=== PATIENT | male | born 1975 | race African-American/Black ===

== ENCOUNTER 2018-07-10 10:42 | Inpatient (IN) | payer OTHER ==
[2018-07-10 11:27] VITALS: BMI 19.3
--- NOTE | 2018-07-10 12:11 | HP ---
CIWA Score Nausea/Vomitin Muscle Tremors: 2 Anxiety: 2 Agitation: 2 Paroxysmal Sweats: 1-Minimal Palms Moist Orientation: 0-Oriented Tacttile Disturbances: 1-Very Mild Itch/Numbness Auditory Disturbances: 1-Very Mild Visual Disturbances: 0-None Headache: 2-Mild CIWA-Ar Total Score: 13 - Admission Criteria [facility] Guidelines: Admission for Medically Managed Detox: Requires at least one of the followin. CIWA greater than 12 2. Seizures within the past 24 hours 3. Delirium tremens within the past 24 hours 4. Hallucinations within the past 24 hours 5. Acute intervention needed for co occurring medical disorder 6. Acute intervention needed for co occurring psychiatric disorder 7. Severe withdrawal that cannot be handled at a lower level of care (continued vomiting, continued diarrhea, abnormal vital signs) requiring intravenous medication and/or fluids 8. Admission ROS S - HPI Chief Complaint: i need help to stop drinking alcohol,marijuana Allergies/Adverse Reactions: Allergies Allergy/AdvReac Type Severity Reaction Status Date / Time No Known Allergies Allergy Verified 07/10/18 15:12 History of Present Illness: this 43 years old with alcohol dependence seeking detox,withdrawal symptom, last detox [place] 06/10/18 to 07/09/18 not completed bipolar disorder with depression,on med no suicidal,no homicidal nicotine dependence 10 cigarette,did not want nicotine replacement weight loss no significant period of sobriety Exam Limitations: No Limitations - Ebola screening Have you traveled outside of the country in the last 21 days: No Have you had contact with anyone from an Ebola affected area: No Have you been sick,other than usual withdrawal symptoms: No - Review of Systems Constitutional: Loss of Appetite, Malaise, Night Sweats, Changes in sleep, Unintentional Wgt. Loss EENT: reports: Tearing, Nose Congestion Respiratory: reports: No Symptoms reported Cardiac: reports: No Symptoms Reported GI: reports: Nausea, Poor Appetite, Vomiting, Abdominal cramping : reports: No Symptoms Reported Musculoskeletal: reports: Back Pain, Muscle Pain Integumentary: reports: Dryness Neuro: reports: Headache, Tremors Endocrine: reports: No Symptoms Reported Hematology: reports: No Symptoms Reported Psychiatric: reports: No Sypmtoms Reported, Judgement Intact, Mood/Affect Appropiate, Orientated x3, Depressed (bipolar disorder) Other Systems: Reviewed and Negative Patient History - Patient Medical History Hx Anemia: No Hx Asthma: No Hx Chronic Obstructive Pulmonary Disease (COPD): No Hx Cancer: No Hx Cardiac Disorders: No Hx Congestive Heart Failure: No Hx Hypertension: No Hx Hypercholesterolemia: No Hx Pacemaker: No HX Cerebrovascular Accident: No Hx Seizures: No Hx Dementia: No Hx Diabetes: No Hx Gastrointestinal Disorders: No Hx Liver Disease: No Hx Genitourinary Disorders: No Hx Sexually Transmitted Disorders: No Hx Renal Disease (ESRD): No Hx Thyroid Disease: No Hx Human Immunodeficiency Virus (HIV): No (last 07/08/18 negative) Hx Hepatitis C: No Hx Depression: Yes Hx Suicide Attempt: No Hx Bipolar Disorder: Yes (on meds) Hx Schizophrenia: No Other Medical History: no suicidal,no homicidal - Patient Surgical History Past Surgical History: No - PPD History Previous Implant?: Yes Documented Results: Positive w/o proof Implanted On Prior [facility] Admission?: No PPD to be Administered?: No - Smoking Cessation Smoking history: Current every day smoker Have you smoked in the past 12 months: Yes Aproximately how many cigarettes per day: 10 Cigars Per Day: 0 Hx Chewing Tobacco Use: No Initiated information on smoking cessation: Yes 'Breaking Loose' booklet given: 07/10/18 - Substance & Tx. History Hx Alcohol Use: Yes Hx Substance Use: Yes Substance Use Type: Alcohol, Marijuana Hx Substance Use Treatment: Yes ([facility] 07/08/18 to 07/09/18 not completed) - Substances Abused Alcohol Route: Oral Frequency: Daily Amount used: 2pints of bacardi/6 packs of 12 ozs of beer Age of first use: 17 Date of Last Use: 07/09/18 Marijuana/Hashish Route: Smoking Frequency: 3-6 times per week Amount used: 20$ Age of first use: 17 Date of Last Use: 07/08/18 Family Disease History - Family Disease History Family Disease History: Other: Father (alcohol), Mother (alcohol,sober) Admission Physical Exam [facility] - Vital Signs Vital Signs: Vital Signs - 24 hr 07/10/18 11:25 Temperature 97.8 F Pulse Rate 122 H Respiratory 20 Rate Blood Pressure 130/94 - Physical General Appearance: Yes: Moderate Distress, Tremorous, Irritable, Sweating, Anxious HEENTM: Yes: Normocephalic, HERIBERTO, Pharynx Normal Respiratory: Yes: Lungs Clear, Normal Breath Sounds, No Respiratory Distress Neck: Yes: Within Normal Limits, Supple, Trachea in good position Breast: Yes: Within Normal Limits Cardiology: Yes: Tachycardia Abdominal: Yes: Within Normal Limits, Normal Bowel Sounds, Non Tender, Flat Genitourinary: Yes: Within Normal Limits Back: Yes: Normal Inspection, Muscle Spasm Musculoskeletal: Yes: Back pain, Muscle Pain Extremities: Yes: Normal Range of Motion, Non-Tender, Tremors Neurological: Yes: dermatopathologist II-XII NML intact, Alert, Motor Strength 5/5 Integumentary: Yes: Dry Lymphatic: Yes: Within Normal Limits - Diagnostic (1) Alcohol dependence with uncomplicated withdrawal Current Visit: Yes Status: Acute (2) Syncope Current Visit: Yes Status: Acute (3) Weight loss Current Visit: Yes Status: Acute (4) Dehydration Current Visit: Yes Status: Acute (5) Bipolar disorder (manic depression) Current Visit: Yes Status: Acute Cleared for Admission [facility] - Detox or Rehab [facility] Level of Care: Medically Managed Detox Regimen/Protocol: Librium [facility] Breath Alcohol Content Breath Alcohol Content: 0.025 Urine Drug Screen - Results Drug Screen Negative: No Urine Drug Screen Results: THC-Marijuana, BZO-Benzodiazepines Inpatient Rehab Admission - Rehab Decision to Admit Inpatient rehab admission?: No
[2018-07-10] MEDS ORDERED: hydrOXYzine PAMOATE 25 MG CAPSULE (FP) PO PRN (12:23)
[2018-07-10] MEDS ORDERED: MAG HYDROX/AL HYDROX/SIMETH 30 ML UNIT-DOSE CUP PO PRN (12:23)
[2018-07-10] MEDS ORDERED: MAGNESIUM CITRATE 300 ML BOTTLE PO PRN (12:23)
[2018-07-10] MEDS ORDERED: MELATONIN 5 MG TABLETS PO PRN (12:23)
[2018-07-10] MEDS ORDERED: METHOCARBAMOL 500 MG TABLET PO PRN (12:23)
[2018-07-10] MEDS ORDERED: IBUPROFEN 400 MG TABLET (FP) PO PRN (12:23)
[2018-07-10] MEDS ORDERED: ACETAMINOPHEN 325 MG TABLET (FP) PO PRN ×2 (12:23)
[2018-07-10] MEDS ORDERED: MENTHOL/PHENOL 1 EACH UD MM PRN (12:23)
[2018-07-10] MEDS ORDERED: BISMUTH SUBSALICYLATE 524 MG/30 ML UD PO PRN (12:23)
[2018-07-10] MEDS ORDERED: chlordiazePOXIDE HCL 25 MG CAPSULE PO PRN (12:23)
[2018-07-10] MEDS ORDERED: MAGNESIUM HYDROX 2400MG/30ML ORAL SUSPENSION 30 ML CUP PO PRN (12:23)
[2018-07-10] MEDS: chlordiazePOXIDE HCL 25 MG CAPSULE PO SCH ×2 (18:37→22:19)
[2018-07-10] MEDS: THIAMINE HCL 100 MG TABLET (FP) PO SCH (22:19)
[2018-07-11] MEDS: chlordiazePOXIDE HCL 25 MG CAPSULE PO SCH ×4 (05:54→22:03)
[2018-07-11] MEDS ORDERED: PNEUMOC 13-VAL CONJ-DIP CRM/PF 0.5 ML DISP.SYRIN IM ONE (06:00)
[2018-07-11] MEDS: PRENATAL VITAMINS W/ FOLIC ACID TABLET (FP) PO SCH (10:22)
[2018-07-11 11:01] LABS: HEMOGLOBIN 12.5 GM/dL (11.7-16.9); MCH 33.7 pg (25.7-33.7); MEAN CELL VOLUME 102.2 fl (80-96); MEAN PLT VOLUME 7.9 fl (7.5-11.1); PLATELET COUNT 303 K/MM3 (134-434); RBC 3.72 M/mm3 (4.00-5.60); RDW 14.9 % (11.9-15.9); WHITE BLOOD COUNT 8.2 K/mm3 (4.0-10.0)
[2018-07-11 11:07] LABS: ALBUMIN 4.7 g/dl (3.4-5.0); ALK PHOS 74 U/L (45-117); ANION GAP 9 MMOL/L (8-16); BILIRUBIN,TOTAL 0.5 mg/dL (0.2-1); BLOOD UREA NITROGEN 11 mg/dL (7-18); CALCIUM 8.8 mg/dL (8.5-10.1); CHLORIDE 97 mmol/L (98-107); CO2 30 mmol/L (21-32); CREATININE 0.9 mg/dL (0.55-1.3); GLUCOSE,RANDOM 89 mg/dL (74-106); POTASSIUM 3.8 mmol/L (3.5-5.1); SGOT/AST 55 U/L (15-37); SGPT/ALT 39 U/L (13-61); SODIUM 136 mmol/L (136-145); TOT PROT 8.7 g/dl (6.4-8.2)
[2018-07-11] MEDS ORDERED: PNEUMOCOCCAL 23 VACCINE 0.5 ML VIAL IM ONE (12:00)
--- NOTE | 2018-07-11 13:40 | PN ---
S CIWA - CIWA Score Nausea/Vomitin Muscle Tremors: 2 Anxiety: 2 Agitation: 2 Paroxysmal Sweats: 2 Orientation: 0-Oriented Tacttile Disturbances: 0-None Auditory Disturbances: 0-None Visual Disturbances: 0-None Headache: 1-Very Mild CIWA-Ar Total Score: 11 S Progress Note (SOAP) Subjective: Sweats, tremors and interrupted sleep Objective: 07/11/18 13:39 Vital Signs - 8 hr 07/11/18 07/11/18 08:29 09:42 Temperature 98.1 F 97.5 F L Pulse Rate 76 101 H Respiratory 18 18 Rate Blood Pressure 134/91 146/82 Laboratory Last Values WBC 8.2 K/mm3 (4.0-10.0) 07/11/18 05:35 RBC 3.72 M/mm3 (4.00-5.60) L 07/11/18 05:35 Hgb 12.5 GM/dL (11.7-16.9) 07/11/18 05:35 Hct 38.0 % (35.4-49) 07/11/18 05:35 MCV 102.2 fl (80-96) H 07/11/18 05:35 MCH 33.7 pg (25.7-33.7) 07/11/18 05:35 MCHC 33.0 g/dl (32.0-35.9) 07/11/18 05:35 RDW 14.9 % (11.9-15.9) 07/11/18 05:35 Plt Count 303 K/MM3 (134-434) 07/11/18 05:35 MPV 7.9 fl (7.5-11.1) 07/11/18 05:35 Sodium 136 mmol/L (136-145) 07/11/18 05:35 Potassium 3.8 mmol/L (3.5-5.1) 07/11/18 05:35 Chloride 97 mmol/L (98-107) L 07/11/18 05:35 Carbon Dioxide 30 mmol/L (21-32) 07/11/18 05:35 Anion Gap 9 MMOL/L (8-16) 07/11/18 05:35 BUN 11 mg/dL (7-18) 07/11/18 05:35 Creatinine 0.9 mg/dL (0.55-1.3) 07/11/18 05:35 Creat Clearance w eGFR 92.54 (>60) 07/11/18 05:35 Random Glucose 89 mg/dL (74-106) 07/11/18 05:35 Calcium 8.8 mg/dL (8.5-10.1) 07/11/18 05:35 Total Bilirubin 0.5 mg/dL (0.2-1) 07/11/18 05:35 AST 55 U/L (15-37) H 07/11/18 05:35 ALT 39 U/L (13-61) 07/11/18 05:35 Alkaline Phosphatase 74 U/L (45-117) 07/11/18 05:35 Total Protein 8.7 g/dl (6.4-8.2) H 07/11/18 05:35 Albumin 4.7 g/dl (3.4-5.0) 07/11/18 05:35 RPR Titer Nonreactive (NONREACTIVE) 07/11/18 05:35 Labs noted Assessment: 07/11/18 13:40 Withdrawal sx Plan: Continue detox
[2018-07-11 13:58] LABS: SICKLE CELL SCREEN NEGATIVE (NEGATIVE)
--- NOTE | 2018-07-11 14:15 | CONSULT ---
[facility] Psychiatric Consult - Data Date of interview: 07/11/18 Admission source: [facility] Identifying data: First admission to [facility] for this 43 y/o AA male self- referred for detoxification (alcohol, cannabis). Examined on . Patient is single, a father of one domiciled (lives with relatives), unemployed and supported on Public Assistance. Substance Abuse History: Confirmed by the patient in this interview. Details in current [facility] report as follows : Smoking history: Current every day smoker. Have you smoked in the past 12 months: Yes. Aproximately how many cigarettes per day: 10. Cigars Per Day: 0. Hx Chewing Tobacco Use: No. Initiated information on smoking cessation: Yes. 'Breaking Loose' booklet given: . - Substance & Tx. History. Hx Alcohol Use: Yes. Hx Substance Use: Yes. Substance Use Type: Alcohol, Marijuana. Hx Substance Use Treatment: Yes ( [facility] 07/08/18 to 07/09/18 not completed). - Substances Abused. Alcohol. Route: Oral. Frequency: Daily. Amount used: 2pints of bacardi/6 packs of 12 ozs of beer. Age of first use: 17. Date of Last Use: 07/09/18. Marijuana/ Hashish. Route: Smoking. Frequency: 3-6 times per week. Amount used: 20$. Age of first use: 17. Date of Last Use: 07/08/18 Medical History: Weight gain. Patient endorses good general health. Psychiatric History: No reported history of psychiatric hospitalizations. Patient indicates that he has been diagnosed with MMD and Anxiety Disorder. Currently medicated with a combination of seroquel + trazodone + lexapro. Mr Ch sees a psychiatrist at the [facility]. Denies history of suicide attempts. Physical/Sexual Abuse/Trauma History: Patient denies. Additional Comment: Urine Drug Screen Results: THC-Marijuana, BZO- Benzodiazepines. Noted. Mental Status Exam - Mental Status Exam Alert and Oriented to: Time, Place, Person Cognitive Function: Good Patient Appearance: Well Groomed (small stature, thin habitus) Mood: Hopeful, Euthymic Affect: Appropriate, Normal Range Patient Behavior: Fatigued, Appropriate, Cooperative Speech Pattern: Clear Voice Loudness: Normal Thought Process: Intact, Goal Oriented Thought Disorder: Not Present Hallucinations: Denies Suicidal Ideation: Denies Homicidal Ideation: Denies Insight/Judgement: Fair Sleep: Poorly, Difficulty falling asleep Appetite: Poor, Weight loss Muscle strength/Tone: Normal Gait/Station: Normal Psychiatric Findings - Problem List ([place] 1, 2,3) (1) Alcohol dependence with uncomplicated withdrawal Current Visit: Yes Status: Acute (2) Cannabis dependence Current Visit: Yes Status: Acute (3) Nicotine dependence Current Visit: Yes Status: Acute (4) Depressive disorder Current Visit: Yes Status: Chronic Comment: As per history. On medications. (5) Insomnia Current Visit: Yes Status: Chronic - Initial Treatment Plan Initial Treatment Plan: Psychoeducation. Sleep hygiene. Detoxification. Support. AA meetings. Resume : seroquel 100 mg po hs + lexapro 10 mg po daily + trazodone 50 mg po hs. Side effects/benefits of each medication are discussed with the patient (including risks of metabolic syndrome, abnormal involuntary movements, cardiovascular adverse events, priapism). Patient endorses good response/tolerability to this regimen and he insists of its continuation during this detoxification process. Consent (verbal) given to MD. Ocampo.
[2018-07-11 14:59] LABS: EPI CELLS 4.4 /HPF (0-5); PH,URINE 7.5 (5.0-8.0); URINE APPEARANCE CLEAR; URINE BACTERIA 4.1 /hpf (NEGATIVE); URINE BILIRUBIN NEGATIVE (NEGATIVE); URINE CASTS 18 /hpf (0-8); URINE COLOR YELLOW; URINE GLUCOSE (UA) NEGATIVE (NEGATIVE); URINE KETONE TRACE (NEGATIVE); URINE LEUK ESTERASE 2+ (NEGATIVE); URINE NITRITE NEGATIVE (NEGATIVE); URINE PROTEIN 2+ (NEGATIVE); URINE RBC 5 /hpf (0-4); URINE WBC 38 /hpf (0-5)
[2018-07-11] MEDS ORDERED: QUEtiapine FUMARATE 100 MG TABLET (FP) PO SCH (22:00)
[2018-07-11] MEDS ORDERED: traZODone HCL 50 MG TABLET (FP) PO SCH (22:00)
[2018-07-11] MEDS: THIAMINE HCL 100 MG TABLET (FP) PO SCH (22:03)
[2018-07-12] MEDS: chlordiazePOXIDE HCL 25 MG CAPSULE PO SCH ×2 (05:24→10:12)
[2018-07-12 09:59] VITALS: BP 132/90; PULSE 95; TEMP 97.2
[2018-07-12] MEDS ORDERED: ESCITALOPRAM OXALATE 10 MG TABLET (FP) PO SCH (10:00)
[2018-07-12] MEDS: PRENATAL VITAMINS W/ FOLIC ACID TABLET (FP) PO SCH (10:12)
--- NOTE | 2018-07-12 11:55 | PN ---
[facility] Progress Note Note: pt states he wants to leave because he feels like he is in [place] [facility]. Pt refused to continue with detox treatment. All disciplines involved with trying to make him understand the importance to his recovery and chances of relapse. But pt continued to insist on leaving and signed out AMA.
--- NOTE | 2018-07-12 12:51 | DS ---
[facility] Detox Discharge Summary Admission Date: 07/10/18 - History Present History: Alcohol Dependence - Physical Exam Results Vital Signs: Vital Signs Temperature 97.2 F L 07/12/18 09:58 Pulse Rate 95 H 07/12/18 09:58 Respiratory Rate 18 07/12/18 09:58 Blood Pressure 132/90 07/12/18 09:58 O2 Sat by Pulse Oximetry (%) - Treatment Hospital Course: Discharged Condition Good - Medication Discharge Medications: Ambulatory Orders Escitalopram Oxalate [Lexapro -] 10 mg PO DAILY 07/10/18 Quetiapine Fumarate [Seroquel] 200 mg PO HS 07/10/18 Trazodone HCl 50 mg PO HS 07/10/18 - AMA Did Patient Leave Against Medical Advice: Yes (going home)
[2018-07-12] MEDS ORDERED: chlordiazePOXIDE HCL 10 MG CAPSULE PO SCH (17:00)
[2018-07-12] MEDS ORDERED: chlordiazePOXIDE HCL 10 MG CAPSULE PO PRN (17:00)
--- NOTE | 2018-07-13 11:22 | EKG ---
Test Reason : Blood Pressure : / mmHG Vent. Rate : 106 BPM Atrial Rate : 106 BPM P-R Int : 162 ms QRS Dur : 088 ms QT Int : 362 ms P-R-T Axes : 062 019 069 degrees QTc Int : 480 ms SINUS TACHYCARDIA VOLTAGE CRITERIA FOR LEFT VENTRICULAR HYPERTROPHY NONSPECIFIC T WAVE ABNORMALITY ABNORMAL ECG NO PREVIOUS ECGS AVAILABLE Confirmed by KEVEN CEJA, AURELIANO ([id number]) on 07/13/2018 11:21:47 AM Referred By: Confirmed By:AURELIANO BACA MD
[2018-07-13] MEDS ORDERED: chlordiazePOXIDE HCL 10 MG CAPSULE PO SCH (17:00)
== END 2018-07-12 13:04 | disposition left against medical advice (07) | DRG 770 ==
LOC: YASAS 10:42 → Y6N 12:21
PROVIDERS: ADMIT Surgery; ATTEND Surgery
PROC: HZ2ZZZZ Detoxification Services for Substance Abuse Treatment (ICD-10-PCS; principal; 2018-07-10)
DX: F10.230 Alcohol dependence with withdrawal, uncomplicated (principal); F12.20 Cannabis dependence, uncomplicated; F17.210 Nicotine dependence, cigarettes, uncomplicated; F31.89 Other bipolar disorder; E86.0 Dehydration; R55 Syncope and collapse; R63.4 Abnormal weight loss; Z68.1 Body mass index [BMI] 19.9 or less, adult
CPT/HCPCS: 36415; 80053; 81003; 85027; 85660; 86593; 90732; 93005; 93010; G0009